=== PATIENT | female | born 1990 | race Caucasian/White ===

== ENCOUNTER 2023-10-04 10:29 | Emergency (ER) | payer MEDICAID ==
[~2023-10-04] VITALS: Ht 152.4 cm; Wt 68.0 kg
[2023-10-04 10:40] VITALS: TEMP 97.9; O2SAT 100
[2023-10-04 11:04] LABS: BASOPHILS % 0.2 % (0.0-2.0); EOSINOPHILS % 0.8 % (0.0-5.0); HEMATOCRIT. 42.7 % (36.0-48.0); HEMOGLOBIN. 14.5 g/dL (12.0-16.0); LYMPHOCYTES % 29.7 % (20.0-50.0); MEAN CORPUSCULAR VOLUME 82.2 fL (81.0-99.0); MEAN PLATELET VOLUME 8.1 fl (7.4-10.4); MONOCYTES % 7.3 % (2.0-8.0); PLATELET 337 x1000/uL (130-400); RED CELL DISTRIBUTION WIDTH 14.5 % (11.6-14.6); WHITE BLOOD COUNT 7.7 x1000/uL (4.5-11.0)
[2023-10-04 11:30] LABS: ALANINE AMINOTRANSFERASE 17 IU/L (10-49); ALBUMIN 4.7 g/dL (3.2-4.8); ASPARTATE AMINOTRANSFERASE 20 IU/L (<34); BILIRUBIN TOTAL 0.9 mg/dL (0.1-1.0); CALCIUM 9.1 mg/dL (8.7-10.4); CARBON DIOXIDE 24 mEq/L (21-32); CHLORIDE 106 mEq/L (98-107); CREATININE 0.6 mg/dL (0.6-1.0); GLUCOSE 79 mg/dL (70-105); POTASSIUM 3.6 mEq/L (3.5-5.1); PROTEIN TOTAL 8.5 g/dL (6.0-8.3); SODIUM 136 mEq/L (136-145); UREA NITROGEN BLOOD 9 mg/dL (9-23)
[2023-10-04 11:37] LABS: TROPONIN I HIGH SENSITIVITY < 4 ng/L (3.0-34)
[2023-10-04 11:59] LABS: CLARITY URINE CLEAR (CLEAR); COLOR URINE YELLOW (YELLOW); GLUCOSE URINE NEGATIVE (NEGATIVE); KETONES URINE 2+ (NEGATIVE); LEUKOCYTE ESTERASE URINE TRACE (NEGATIVE); NITRITE URINE NEGATIVE (NEGATIVE); OCCULT BLOOD URINE NEGATIVE (NEGATIVE); PH URINE 5.5 (4.5-8.0); PROTEIN URINE NEGATIVE (NEGATIVE); SPECIFIC GRAVITY URINE 1.016 (1.005-1.030); UROBILINOGEN URINE 0.2 E.U./dL (0.2-1.0)
[2023-10-04 12:19] LABS: MUCUS URINE 2+ /lpf (< = 2+); SQUAMOUS EPITHELIAL CELL URINE 2+ /lpf (RARE/1+)
[2023-10-04 12:20] LABS: RBC URINE 0-2 /hpf (0-2); WBC URINE 0-2 /hpf (0-2)
[2023-10-04 12:21] LABS: BACTERIA URINE TRACE
[2023-10-04] MEDS ORDERED: TOPUD MT (13:20)
[2023-10-04] MEDS ORDERED: IBUP-2028 MT (13:20)
[2023-10-04 14:30] VITALS: BP 104/64; PULSE 68; RESP 18
== END 2023-10-04 14:33 | disposition home or self-care (01) ==
LOC: ER 10:29
DX: N63.10 Unspecified lump in the right breast, unspecified quadrant (principal); Z91.018 Allergy to other foods
CPT/HCPCS: 36415; 76642; 80053; 81003; 81025; 84484; 85025; 99284

== ENCOUNTER 2024-01-31 07:17 | Emergency (ER) | payer MEDICAID ==
[~2024-01-31] VITALS: Ht 157.5 cm; Wt 72.6 kg
[~2024-01-31 07:17] MED LIST: IBUP-2028 MT; TOPUD MT
[2024-01-31 07:27] VITALS: BP 107/65; PULSE 77; RESP 16; TEMP 98.3; O2SAT 100
[2024-01-31] MEDS: IBUPROFEN 600MG TABLET PO ONE (08:21)
== END 2024-01-31 10:46 | disposition home or self-care (01) ==
LOC: ER 07:17
DX: M79.642 Pain in left hand (principal); Z98.890 Other specified postprocedural states; Z91.018 Allergy to other foods
CPT/HCPCS: 73110; 73130; 99284

== ENCOUNTER 2024-04-12 08:12 | Emergency (ER) | payer MEDICAID ==
[~2024-04-12] VITALS: Ht 162.6 cm; Wt 70.0 kg
[2024-04-12 08:21] VITALS: O2SAT 100
[2024-04-12 08:33] LABS: BASOPHILS % 0.4 % (0.0-2.0); EOSINOPHILS % 1.6 % (0.0-5.0); HEMATOCRIT. 42.3 % (36.0-48.0); HEMOGLOBIN. 13.8 g/dL (12.0-16.0); LYMPHOCYTES % 35.4 % (20.0-50.0); MEAN CORPUSCULAR HEMOGLOBIN 27.6 pg (28.0-32.0); MEAN CORPUSCULAR HGB CONC 32.7 g/dL (31.0-37.0); MEAN CORPUSCULAR VOLUME 84.5 fL (81.0-99.0); MEAN PLATELET VOLUME 7.9 fl (7.4-10.4); MONOCYTES % 8.2 % (2.0-8.0); NEUTROPHILS % 54.4 % (40.0-76.0); PLATELET 301 x1000/uL (130-400)
[2024-04-12 08:41] LABS: CHLORIDE 104 mEq/L (98-107); POTASSIUM 3.7 mEq/L (3.5-5.1); SODIUM 135 mEq/L (136-145)
[2024-04-12 08:42] LABS: CALCIUM 9.4 mg/dL (8.7-10.4); CARBON DIOXIDE 26 mEq/L (21-32)
[2024-04-12 08:47] LABS: CREATININE 0.6 mg/dL (0.6-1.0); GLUCOSE 93 mg/dL (70-105); UREA NITROGEN BLOOD 9 mg/dL (9-23)
[2024-04-12] MEDS: KETOROLAC 30MG/ML VIAL IM ONE (09:28)
[2024-04-12] MEDS ORDERED: IBUP-2029 MT (09:32)
[2024-04-12 09:44] VITALS: BP 144/87; PULSE 66; RESP 16; TEMP 36.61404; O2SAT 100
== END 2024-04-12 11:09 | disposition home or self-care (01) ==
LOC: ER 08:12
DX: N64.4 Mastodynia (principal); Z91.018 Allergy to other foods; Z98.890 Other specified postprocedural states
CPT/HCPCS: 99283; 80048; 81025; 85025; 36415; 96372; J1885

== ENCOUNTER 2025-05-21 18:05 | Emergency (ER) | payer MEDICAID ==
[~2025-05-21] VITALS: Ht 167.6 cm; Wt 62.0 kg
[~2025-05-21 18:05] MED LIST changes: +IBUP-1455 MT
[2025-05-21] MEDS ORDERED: ACETAMINOPHEN 500MG TABLET PO ONE (18:15)
[2025-05-21 18:16] VITALS: O2SAT 100
[2025-05-21 19:12] LABS: BASOPHILS % 0.2 % (0.0-2.0); EOSINOPHILS % 1.5 % (0.0-5.0); HEMATOCRIT. 39.0 % (36.0-48.0); HEMOGLOBIN. 12.8 g/dL (12.0-16.0); LYMPHOCYTES % 24.2 % (20.0-50.0); MEAN PLATELET VOLUME 7.9 fl (7.4-10.4); MONOCYTES % 9.0 % (2.0-8.0); NEUTROPHILS % 65.1 % (40.0-76.0); PLATELET 273 x1000/uL (130-400); RED BLOOD CELL COUNT 4.59 mill/uL (4.2-5.4); RED CELL DISTRIBUTION WIDTH 14.2 % (11.6-14.6)
[2025-05-21 19:25] LABS: HCG SCREEN POSITIVE
[2025-05-21 19:31] LABS: CREATININE 0.5 mg/dL (0.6-1.0)
[2025-05-21 19:32] LABS: UREA NITROGEN BLOOD 8 mg/dL (9-23)
[2025-05-21 19:33] LABS: ASPARTATE AMINOTRANSFERASE 15 IU/L (<34)
[2025-05-21 19:34] LABS: BILIRUBIN DIRECT < 0.1 mg/dL (<=3.0); BILIRUBIN TOTAL 0.3 mg/dL (0.1-1.0); PROTEIN TOTAL 6.5 g/dL (6.0-8.3)
[2025-05-21] MEDS ORDERED: TOPUD MT (21:01)
[2025-05-21 21:38] VITALS: BP 99/60; PULSE 63; RESP 22; TEMP 36.9; O2SAT 99
[2025-05-21] MEDS: ACETAMINOPHEN 500MG TABLET PO SCH (21:38)
== END 2025-05-21 21:40 | disposition home or self-care (01) ==
LOC: ER 18:05 → CMPBEDREQ 05-22 07:50
DX: O26.891 Other specified pregnancy related conditions, first trimester (principal); I10 Essential (primary) hypertension; R10.20 Pelvic and perineal pain unspecified side; Z98.890 Other specified postprocedural states; Z3A.12 12 weeks gestation of pregnancy
CPT/HCPCS: 36415; 76770; 76801; 80048; 80076; 84702; 84703; 85025; 86850; 86900; 99284; A4606

== ENCOUNTER 2025-07-13 20:13 | Emergency (ER) | payer MEDICAID ==
[~2025-07-13] VITALS: Ht 160 cm; Wt 73.0 kg
[2025-07-13 20:17] VITALS: TEMP 36.9; O2SAT 100
[2025-07-13 20:18] VITALS: TEMP 98.5
[2025-07-13] MEDS: ACETAMINOPHEN 500MG TABLET PO ONE (21:27)
[2025-07-13] MEDS: LIDOCAINE 5% PATCH TOP SCH (21:27)
[2025-07-13 21:50] LABS: CLARITY URINE CLOUDY (CLEAR); COLOR URINE YELLOW (YELLOW); GLUCOSE URINE NEGATIVE (NEGATIVE); KETONES URINE NEGATIVE (NEGATIVE); LEUKOCYTE ESTERASE URINE NEGATIVE (NEGATIVE); NITRITE URINE NEGATIVE (NEGATIVE); OCCULT BLOOD URINE NEGATIVE (NEGATIVE); PH URINE 6.0 (4.5-8.0); PROTEIN URINE NEGATIVE (NEGATIVE); SPECIFIC GRAVITY URINE 1.023 (1.005-1.030); UROBILINOGEN URINE 1.0 E.U./dL (0.2-1.0)
[2025-07-13 22:23] LABS: BACTERIA URINE 2+; CALCIUM OXALATE CRYSTALS URINE 2+ /lpf; RBC URINE 0-2 /hpf (0-2); SQUAMOUS EPITHELIAL CELL URINE 1+ /lpf (RARE/1+); WBC URINE 0-2 /hpf (0-2)
[2025-07-13] MEDS ORDERED: LIDO-53 TP (22:39)
[2025-07-13] MEDS ORDERED: ACET-2708 MT (22:39)
[2025-07-13 23:07] VITALS: BP 100/52; PULSE 66; RESP 19; O2SAT 100
== END 2025-07-13 23:13 | disposition home or self-care (01) ==
LOC: ER 20:13
DX: M79.2 Neuralgia and neuritis, unspecified (principal); M54.50 Low back pain, unspecified; I10 Essential (primary) hypertension; Z91.018 Allergy to other foods
CPT/HCPCS: 81003; 99283